=== PATIENT | female | born 1945 | race Caucasian/White ===

== ENCOUNTER 2017-09-15 10:34 | Emergency (ER) | payer OTHER, MEDICARE ==
--- NOTE | 2017-09-15 11:06 | CPEKG ---
Heart Rate: 91 RR Interval: 659 P-R Interval: 132 QRSD Interval: 100 QT Interval: 356 QTC Interval: 439 P [place]: 57 QRS [place]: -62 T Wave [place]: 80 EKG Severity - ABNORMAL ECG - EKG Impression: SINUS RHYTHM EKG Impression: LEFT ANTERIOR FASCICULAR BLOCK EKG Impression: PROBABLE LEFT VENTRICULAR HYPERTROPHY Electronically Signed By: Kosta Guillory 15-Sep-2017 11:45:46
--- NOTE | 2017-09-15 11:45 | EDPHY ---
H & P Time Seen by Provider: 09/15/17 11:44 HPI/ROS: CHIEF COMPLAINT: Right-sided chest pain HISTORY OF PRESENT ILLNESS: Patient is 71 years old and has been traveling recently just got back from [place] and is visiting from [place] for her granddaughter's graduation from high school. She developed cough and mild shortness of breath 45 days ago and was seen at a clinic yesterday in [place], was prescribed Z-Sergio. She presents today with 24 hr of right-sided chest pain under her right breast which is worse with deep breathing, does not radiate, no history of trauma. Not associated with hemoptysis or leg swelling. No left- sided symptoms. Currently 11/04, moderate to severe. REVIEW OF SYSTEMS: Eye: no change in vision ENT: no sore throat Cardiac: HPI Pulmonary: HPI Abdomen: no vomiting, diarrhea, abdominal pain Musculoskeletal: No leg swelling Skin: no rash Neuro: no headache Constitutional: no fever : no urinary symptoms A comprehensive 10 point review of systems is otherwise negative aside from elements mentioned in the history of present illness. PAST MEDICAL HISTORY: Includes hysterectomy and tonsillectomy, bladder surgery , Ernestine procedure, asthma Social history: Visiting from [place] General Appearance: Alert and conversant, cooperative. Eyes: No scleral icterus. ENT, Mouth: Normal mucous membranes. Respiratory: Normal respiratory effort, breath sounds equal, lungs are clear to auscultation. Decreased breath sounds with splinting. Cardiovascular: Regular rate and rhythm. Gastrointestinal: Abdomen is soft and non tender. Neurological: Alert, face symmetric, normal motor and sensory in extremities. Skin: Warm and dry, no rashes. Musculoskeletal: No peripheral edema. No calf tenderness. Psychiatric: Not agitated. Emergency Department course/MDM: Dilaudid 0.5 mg IV, plan for x-ray and D-dimer. I think pleurisy or musculoskeletal is more likely than pulmonary embolism. 1316: results reviewed with patient, D-dimer negative, oxygen saturation 93% on room air, pain controlled. Admission versus outpatient treatment discussed, she wants DC with oral pain medications which I think is reasonable. Continue oral antibiotics. Smoking Status: Never smoked Constitutional: Initial Vital Signs Temperature (C) 37.7 C 09/15/17 10:54 Heart Rate 95 09/15/17 10:54 Respiratory Rate 16 09/15/17 10:54 Blood Pressure 135/78 H 09/15/17 10:54 O2 Sat (%) 93 09/15/17 10:54 O2 Delivery Mode Room Air Allergies/Adverse Reactions: acetaminophen [From Vicodin] Allergy (Verified 09/15/17 10:51) codeine Allergy (Verified 09/15/17 10:51) hydrocodone [From Vicodin] Allergy (Verified 09/15/17 10:51) Home Medications: Medication Instructions Recorded Advair Hfa 115-21 Mcg Inhaler 09/15/17 Baclofen 09/15/17 Calcium 1,000 + D3 Caplet 09/15/17 FLUoxetine HCL 09/15/17 Glucosamine 09/15/17 Lorazepam 09/15/17 Montelukast Sodium 09/15/17 Multivitamins 09/15/17 Proair Hfa 09/15/17 SIMVASTATIN 09/15/17 Tylenol PM (*) 09/15/17 Vitamin B-1 09/15/17 oxyCODONE/APAP 5/325 [Percocet] 1 tab PO Q4-6PRN PRN #7 tab 09/15/17 Medical Decision Making - Diagnostics EKG Interpretation: 12-lead EKG interpreted by me; official reading is in trace master. My interpretation is sinus rhythm with LVH and left anterior fascicular block rate 91. Imaging Results: Imaging Impressions Chest X-Ray 09/15/17 11:34 Impression: Focal consolidation/pneumonia inferior aspect right upper lobe with peribronchial cuffing. Imaging: I viewed and interpreted images myself Differential Diagnosis: Differential diagnosis considered for chest pain including but not limited to myocardial ischemia, aortic dissection, pericarditis, pulmonary embolus, chest wall pain, pleural inflammation and pulmonary infectious causes. - Data Points Laboratory Results: Laboratory Results 09/15/17 11:04 09/15/17 11:04 09/15/17 09/15/17 09/15/17 11:04 11:04 11:04 WBC 15.49 10^3/uL H 10^3/uL (3.80-9.50) RBC 4.52 10^6/uL 10^6/uL (4.18-5.33) Hgb 14.6 g/dL g/dL (12.6-16.3) Hct 43.2 % % (38.0-47.0) MCV 95.6 fL fL (81.5-99.8) MCH 32.3 pg pg (27.9-34.1) MCHC 33.8 g/dL g/dL (32.4-36.7) RDW 12.3 % % (11.5-15.2) Plt Count 244 10^3/uL 10^3/uL (150-400) MPV 11.6 fL fL (8.7-11.7) Neut % (Auto) 81.9 % H % (39.3-74.2) Lymph % (Auto) 9.0 % L % (15.0-45.0) [place] % (Auto) 7.9 % % (4.5-13.0) Eos % (Auto) 0.5 % L % (0.6-7.6) Baso % (Auto) 0.3 % % (0.3-1.7) Nucleat RBC Rel Count 0.0 % % (0.0-0.2) Absolute Neuts (auto) 12.67 10^3/uL H 10^3/uL (1.70-6.50) Absolute Lymphs (auto) 1.40 10^3/uL 10^3/uL (1.00-3.00) Absolute Monos (auto) 1.23 10^3/uL H 10^3/uL (0.30-0.80) Absolute Eos (auto) 0.08 10^3/uL 10^3/uL (0.03-0.40) Absolute Basos (auto) 0.05 10^3/uL 10^3/uL (0.02-0.10) Absolute Nucleated RBC 0.00 10^3/uL 10^3/uL (0-0.01) Immature Gran % 0.4 % % (0.0-1.1) Immature Gran # 0.06 10^3/uL 10^3/uL (0.00-0.10) D-Dimer 0.31 ug/mLFEU ug/mLFEU (0.00-0.50) Sodium 141 mEq/L mEq/L (135-145) Potassium 4.2 mEq/L mEq/L (3.3-5.0) Chloride 102 mEq/L mEq/L (97-110) Carbon Dioxide 23 mEq/l mEq/l (22-31) Anion Gap 16 mEq/L mEq/L (8-16) BUN 13 mg/dL mg/dL (7-23) Creatinine 0.6 mg/dL mg/dL (0.6-1.0) Estimated GFR > 60 Glucose 111 mg/dL H mg/dL (70-100) Calcium 9.5 mg/dL mg/dL (8.5-10.4) Medications Given: Discontinued Medications Hydromorphone HCl (Dilaudid) 0.5 mg IVP EDNOW ONE Stop: 09/15/17 12:07 Last Admin: 09/15/17 12:10 Dose: 0.5 mg Departure - Departure Disposition: Home, Routine, Self-Care Clinical Impression: Pneumonia Qualifiers: Pneumonia type: due to unspecified organism Laterality: right Lung location: upper lobe of lung Qualified Code(s): J18.1 - Lobar pneumonia, unspecified organism Condition: Good Instructions: Bacterial Pneumonia (ED) Additional Instructions: Keep your appointment with your PCP this . Finish antibiotics as prescribed. Referrals: OLY BLAKELY [Other] - As per Instructions Prescriptions: oxyCODONE/APAP 5/325 [Percocet] 1 tab PO Q4-6PRN PRN #7 tab PRN Reason: Pain
[2017-09-15] MEDS ORDERED: HYDROmorphONE/DILAUDID 2 MG/ML INJ IVP ONE (12:06)
[2017-09-15] MEDS ORDERED: HYDROmorphONE/DILAUDID 1 MG/ML INJ ONE (12:08)
[2017-09-15 12:16] LABS: PLATELET COUNT 244 10^3/uL (150-400)
[2017-09-15 13:41] VITALS: BP 137/72
== END 2017-09-15 13:45 | disposition home or self-care (01) ==
DX: J18.1 Lobar pneumonia, unspecified organism (principal); J45.909 Unspecified asthma, uncomplicated
CPT/HCPCS: 71046; 93005; 96374; 99285; J1170